=== PATIENT | female | born 1975 | race Caucasian/White ===

== ENCOUNTER → 2016-10-07 | Outpatient (CLI) | payer MEDICARE, MEDICAID ==
[2016-10-07 11:47] LABS: ABSOLUTE BASOPHILS # (AUTO) 0.1 10^3/uL (0.0-0.2); ABSOLUTE EOSINOPHILS # (AUTO) 0.2 10^3/uL (0.0-0.6); ABSOLUTE LYMPHOCYTES (AUTO) 1.6 10^3/uL (0.5-4.7); ABSOLUTE MONOCYTES (AUTO) 0.5 10^3/uL (0.1-1.4); ABSOLUTE NEUT (AUTO) 2.9 10^3/uL (1.7-8.2); BASOPHILS % (AUTO) 1.2 % (0-2); EOSINOPHILS % (AUTO) 4.2 % (0-6); HEMATOCRIT 37.9 % (36.0-47.0); HEMOGLOBIN 12.7 g/dL (12.0-15.5); HGB HCT DIFFERENCE 0.2; LYMPHOCYTES % (AUTO) 30.7 % (13-45); MEAN CORPUSCULAR HEMOGLOBIN 29.8 pg (27.0-33.4); MEAN CORPUSCULAR HGB CONC 33.6 g/dL (32.0-36.0); MEAN CORPUSCULAR VOLUME 89 fl (80-97); MONOCYTES % (AUTO) 8.8 % (3-13); RED BLOOD COUNT 4.26 10^6/uL (3.72-5.28); RED CELL DISTRIBUTION WIDTH 13.5 % (11.5-14.0); SEGMENTED NEUTROPHILS % (AUTO) 55.1 % (42-78); WHITE BLOOD COUNT 5.2 10^3/uL (4.0-10.5)
== END ==
LOC: CAR 10:35
PROVIDERS: ATTEND Family Medicine
DX: Z79.899 Other long term (current) drug therapy (principal); G40.209 Localization-related (focal) (partial) symptomatic epilepsy and epileptic syndromes with complex partial seizures, not intractable, without status epilepticus
CPT/HCPCS: 85025

== ENCOUNTER → 2018-10-27 | Outpatient (CLI) | payer MEDICARE, MEDICAID ==
[2018-10-27 09:46] LABS: ABSOLUTE EOSINOPHILS # (AUTO) 0.1 10^3/uL (0.0-0.6); ABSOLUTE LYMPHOCYTES (AUTO) 1.5 10^3/uL (0.5-4.7); ABSOLUTE MONOCYTES (AUTO) 0.4 10^3/uL (0.1-1.4); ABSOLUTE NEUT (AUTO) 3.3 10^3/uL (1.7-8.2); BASOPHILS % (AUTO) 0.7 % (0-2); EOSINOPHILS % (AUTO) 1.9 % (0-6); HEMATOCRIT 39.7 % (36.0-47.0); HEMOGLOBIN 13.1 g/dL (12.0-15.5); LYMPHOCYTES % (AUTO) 28.3 % (13-45); MEAN CORPUSCULAR VOLUME 88 fl (80-97); MONOCYTES % (AUTO) 7.2 % (3-13); PLATELET COUNT 232 10^3/uL (150-450); RED BLOOD COUNT 4.53 10^6/uL (3.72-5.28); RED CELL DISTRIBUTION WIDTH 14.5 % (11.5-14.0); SEGMENTED NEUTROPHILS % (AUTO) 61.9 % (42-78); TOTAL CELLS COUNTED % (AUTO) 100 %; WHITE BLOOD COUNT 5.4 10^3/uL (4.0-10.5)
[2018-10-27 10:31] LABS: ALANINE AMINOTRANSFERASE 29 U/L (9-52); ALBUMIN 4.6 g/dL (3.5-5.0); ALKALINE PHOSPHATASE 91 U/L (38-126); ANION GAP 15 (5-19); ASPARTATE AMINO TRANSFERASE 21 U/L (14-36); BILIRUBIN,DIRECT 0.4 mg/dL (0.0-0.4); BILIRUBIN,TOTAL 0.5 mg/dL (0.2-1.3); BLOOD UREA NITROGEN 11 mg/dL (7-20); CALCIUM 9.6 mg/dL (8.4-10.2); CARBON DIOXIDE 28 mmol/L (22-30); CHLORIDE 103 mmol/L (98-107); CHOLESTEROL 163.92 mg/dL (0-200); GLUCOSE 94 mg/dL (75-110); POTASSIUM 3.6 mmol/L (3.6-5.0); SODIUM 145.9 mmol/L (137-145); TOTAL PROTEIN 8.4 g/dL (6.3-8.2); TRIGLYCERIDES 67 mg/dL (<150)
[2018-10-27 10:42] LABS: DIRECT LDL 86 mg/dL (<100)
== END ==
LOC: CAR 08:38
PROVIDERS: ATTEND Family Medicine
DX: E55.9 Vitamin D deficiency, unspecified (principal); K59.00 Constipation, unspecified; Z00.00 Encounter for general adult medical examination without abnormal findings; Z79.899 Other long term (current) drug therapy; G40.909 Epilepsy, unspecified, not intractable, without status epilepticus
CPT/HCPCS: 80053; 80061; 82306; 84443; 85025

== ENCOUNTER 2018-12-21 15:36 | Emergency (ER) | payer MEDICARE, MEDICAID ==
--- NOTE | 2018-12-21 18:39 | ER Document Report ---
ED Fall - General Chief Complaint: Head Injury without LOC Stated Complaint: HEAD INJURY Time Seen by Provider: 12/21/18 18:25 Primary Care Provider: MORENITA HARPER MD [Primary Care Provider] - Follow up as needed Mode of Arrival: Wheelchair Information source: Patient Notes: 43-year-old resident of [place] fell today when she was getting up off the toilet hitting her head on the floor. Caregiver states that she tried to stand up and lost her balance and fell landing on the tile floor. Staff reports no unconsciousness there is a small abrasion to her right side of her scalp but no active bleeding. Staff states she also fell landing on her shoulder. She is moving the shoulder but as she is unable to tell me if she has any pain I am unable to assess the amount of pain. We will get a x-ray of the shoulder to ensure that it is not injured. TRAVEL OUTSIDE OF THE [place] IN LAST 30 DAYS: No - HPI Occurred: This afternoon Where: Other - [place] Context: Fell from standing Associated symptoms: None Location of injury/pain: Head, Shoulder - Right Quality of pain: No pain - Unable to determine no obvious pain Severity: None Past Medical History - General Information source: Legal Guardian - Caregiver at [facility] - Social History Smoking Status: Never Smoker Frequency of alcohol use: None Drug Abuse: None Lives with: Other - [place] Family History: Reviewed & Not Pertinent Patient has suicidal ideation: No Patient has homicidal ideation: No - Past Medical History Cardiac Medical History: Reports: None Pulmonary Medical History: Reports: None EENT Medical History: Reports: None Neurological Medical History: Reports: None Endocrine Medical History: Reports: None Renal/ Medical History: Reports: None Malignancy Medical History: Reports: None GI Medical History: Reports: None Musculoskeletal Medical History: Reports Hx Muscle Spasm, Reports Hx Muscle Weakness, Reports Hx Musculoskeletal Deformity, Reports Hx Musculoskeletal Trauma, Reports Other - Cerebral palsy Skin Medical History: Reports None Psychiatric Medical History: Reports: None Traumatic Medical History: Reports: None Infectious Medical History: Reports: None Review of Systems - Review of Systems Constitutional: No symptoms reported EENT: No symptoms reported Cardiovascular: No symptoms reported Respiratory: No symptoms reported Gastrointestinal: No symptoms reported Genitourinary: No symptoms reported Female Genitourinary: No symptoms reported Musculoskeletal: Muscle stiffness Skin: Other - Small abrasion to right scalp Hematologic/Lymphatic: No symptoms reported Neurological/Psychological: No symptoms reported -: Yes All other systems reviewed and negative Physical Exam - Vital signs Vitals: Temp Pulse Resp BP Pulse Ox 98.6 F 100 20 112/71 100 12/21/18 16:16 12/21/18 16:16 12/21/18 16:16 12/21/18 16:16 12/21/18 16:16 Interpretation: Normal - General General appearance: Appears well, Alert - HEENT Head: Abrasions, Open wounds, Tenderness, Other - Superficial less than half centimeter laceration to the right scalp Eyes: Normal - Respiratory Respiratory status: No respiratory distress Chest status: Nontender Breath sounds: Normal Chest palpation: Normal - Cardiovascular Rhythm: Regular Heart sounds: Normal auscultation Murmur: No - Abdominal Inspection: Normal Distension: No distension Bowel sounds: Normal Tenderness: Nontender Organomegaly: No organomegaly - Back Back: Normal, Nontender - Extremities General upper extremity: Normal inspection, Tender - Right shoulder, Normal color, Normal temperature. No: Normal ROM - Cerebral palsy General lower extremity: Normal inspection, Nontender, Normal color, Normal temperature. No: Normal ROM - Cerebral palsy, Normal weight bearing, Zoë's sign - Neurological Neuro grossly intact: Yes Cognition: Normal Orientation: AAOx4 Bowie Coma Scale Eye Opening: Spontaneous Bowie Coma Scale Verbal: Oriented Lashell Coma Scale Motor: Obeys Commands Bowie Coma Scale Total: 15 Speech: Normal Motor strength normal: LUE, RUE, LLE, RLE Sensory: Normal - Psychological Associated symptoms: Normal affect, Normal mood - Skin Skin Temperature: Warm Skin Moisture: Dry Skin Color: Normal Skin irregularity: Laceration - Extremely superficial less than half a centimeter abrasions around the small laceration Location of irregularity: Scalp Irregularity with: Tenderness Course - Re-evaluation Re-evalutation: 12/21/18 20:34 X-rays negative. Caregiver was instructed to continue current treatments and to follow-up with primary doctor in the next 24 to 48 hours. - Vital Signs Vital signs: Temp Pulse Resp BP Pulse Ox 97.6 F 97 14 99/85 L 100 12/21/18 19:47 12/21/18 19:47 12/21/18 19:47 12/21/18 19:47 12/21/18 16:16 - Diagnostic Test Radiology reviewed: Image reviewed, Reports reviewed Discharge - Discharge Clinical Impression: Fall Qualifiers: Encounter type: initial encounter Qualified Code(s): W19.XXXA - Unspecified fall, initial encounter Laceration of head Qualifiers: Encounter type: initial encounter Location of open wound of head: scalp Foreign body presence: without foreign body Qualified Code(s): S01.01XA - Laceration without foreign body of scalp, initial encounter Shoulder injury Qualifiers: Encounter type: initial encounter Laterality: right Qualified Code(s): S49.91XA - Unspecified injury of right shoulder and upper arm, initial encounter Condition: Good Disposition: HOME, SELF-CARE Additional Instructions: HEAD INJURY PRECAUTIONS: At this point, there is no evidence that your head injury is serious. Observation is necessary, however. Take only clear liquids for the first few hours, unless told otherwise by the doctor. If no pain medication was prescribed, you may take acetaminophen according to the directions on the bottle. Do not take any medication that may alter your level of alertness (unless you've discussed it with the doctor first). Limit activity for the first 24 hours. Bed rest is best. During the first 24 hours, check to see approximately every two to three hours that the patient is easily arousable, responds normally, and can perform common tasks such as walking without difficulty. Contact your doctor or go to the hospital if any of the following things occur: Persistent vomiting, difficulty in arousing the patient, worsening or continued headache, or failure to improve as expected. Head injuries can cause symptoms that persist for a few days or even a few weeks. NON-SUTURED LACERATION: Your laceration did not require suturing. Some lacerations cannot be sutured because of increased infection risk, while others simply don't need stitches because they are shallow or very short. Your injury should be protected while it heals. Usually complete healing takes 10 to 14 days. Keep the dressing clean and dry, and change it every day. If you notice increasing pain, redness, swelling, drainage, or tender lumps in the armpit or groin above the injury, infection may be present. You should call the doctor at once. SOAP CLEANSING: Gently wash the wound daily using a mild soap (like Ivory, Phisoderm, Neutrogena). Use warm water, rubbing gently until all debris, ooze, and crusting have been washed from the wound. Allow to dry briefly (about 10 minutes) after cleaning. Repeat this cleansing at least three times a day for the first two days and then once or twice a day. ANTIBIOTIC OINTMENT PROTECTION: Your wounds are such that dressing them is not practical or optional. After cleansing, you should apply a thin coating of antibiotic ointment (Bacitracin, not Neosporin) to the wounds at least three times daily. This lessens infection risk, and may decrease the amount of scarring. Use a q-tip or dull butter knife, not your finger, to apply this ointment. Any debris or ooze which builds up in the ointment should be gently rubbed off with a sterile gauze pad. Harder crusting may need to be gently scrubbed off with a clean wash cloth with soap and warm water, perhaps applying a warm, wet wash cloth to the wound for ten minutes first. Development of redness, severe itching, or blistering may mean allergy to the ointment. See the doctor. CONTUSION: Your injury has resulted in a contusion -- a crushing of the deep tissues. No injury to important structures was detected during the physician's exam. Contusions vary in the amount of pain they cause, and in the length of time required for healing. Typically, the area will become bruised, and will remain painful to touch for two or three weeks. However, most patients are back to working and playing within a few days. After the initial period of rest and cold-packs, your symptoms (together with the doctor's recommendations) will determine how rapidly you can get back to full activity. Usually this means "do what feels okay, but don't do things that hurt." If re-examination was recommended, it's important to follow up as instructed. Call the doctor or return any time if pain increases, if swelling becomes severe, if you develop numbness or weakness in an injured extremity, or if any other alarming symptoms occur. ABRASIONS: An abrasion is a scraping injury of the skin. Some scarring may result. The seriousness of an abrasion is not always obvious at first. Hidden tissue damage may be present and infection may occur despite proper care. Complete healing may take from ten days to as long as a month. The healing time depends on the depth of the abrasion, and on the amount of crushing of underlying tissues from the injury. Keep the wound and dressing clean. Do not shower or bathe the area until okayed by the doctor. If the dressing gets wet, remove it and blot the wound dry, then reapply a clean dressing. Dressings should be changed every day. Sunscreen should be used for six months after the skin is healed. If any signs of infection occur (swelling, redness, increasing tenderness, red streaks, profuse purulent drainage from the abrasion, tender lumps in the armpit or groin above the abrasion, or fever), see the doctor immediately. USE OF TYLENOL (ACETAMINOPHEN): Acetaminophen may be taken for pain relief or fever control. It's much safer than aspirin, offering a wider range of "safe" dosages. It is safe during . Some brand names are Tylenol, Panadol, Datril, Anacin 3, Tempra, and Liquiprin. Acetaminophen can be repeated every four hours. The following are maximum recommended dosages: WEIGHT Dose Drops Elixir Chewable(80mg) (LBS.) drprs=droppers tsp=teaspoon 6 40 mg 0.4 ml (1/2) 6-11 80 mg 0.8 ml (full) tsp 1 tab 12-16 120 mg 1 1/2 drprs 3/4 tsp 1 1/2 tabs 17-23 160 mg 2 drprs 1 tsp 2 tabs 24-30 240 mg 3 drprs 1 1/2 tsp 3 tabs 30-35 320 mg 2 tsp 4 tabs 36-41 360 mg 2 1/4 tsp 4 1/2 tabs 42-47 400 mg 2 1/2 tsp 5 tabs 48-53 480 mg 3 tsp 6 tabs 54-59 520 mg 3 1/4 tsp 6 1/2 tabs 60-64 560 mg 3 1/2 tsp 7 tabs 65-70 600 mg 3 3/4 tsp 7 1/2 tabs 71-76 640 mg 4 tsp 8 tabs 77-82 720 mg 4 1/2 tsp 9 tabs 83-88 800 mg 5 tsp 10 tabs >89 pounds or adults 650 mg to 900 mg Acetaminophen can be repeated every four hours. Maximum dose not to exceed 4000 mg a day. These maximum recommended dosages are slightly higher than the dosages written on the product container, but these dosages are very safe and below the toxic dosage for acetaminophen. ICE PACKS: Apply ice packs frequently against the painful area. Many different schedules are recommended, such as "20 minutes on, 20 minutes off" or "one hour ice, two hours rest." If you need to work, you may need to go longer between ice treatments. You should plan to have the area ice packed AT LEAST one fourth of the time. The ice should be applied over the wrap, tape, or splint, or over a layer of cloth -- not directly against the skin. Some ice bags have a built-in cloth and can be put directly on the skin. FOLLOW-UP CARE: If you have been referred to a physician for follow-up care, call the physicians office for an appointment as you were instructed or within the next two days. If you experience worsening or a significant change in your symptoms, notify the physician immediately or return to the Emergency Department at any time for re-evaluation. Referrals: MORENITA HARPER MD [Primary Care Provider] - Follow up as needed
--- NOTE | 2018-12-21 19:03 | RADIOLOGY REPORT (SQ) ---
EXAM DESCRIPTION: SHOULDER RIGHT 2 OR MORE VIEWS COMPLETED DATE/TIME: 12/21/2018 6:50 pm REASON FOR STUDY: fall onto shoulder, cerebral palsy COMPARISON: None. NUMBER OF VIEWS: Four views. TECHNIQUE: Internal rotation, external rotation, and Y view images acquired of the right shoulder. LIMITATIONS: None. FINDINGS: MINERALIZATION: Normal. BONES: No acute fracture. No worrisome bone lesions. JOINTS: No dislocation. VISUALIZED LUNGS AND RIBS: No pneumothorax. No rib fracture. SOFT TISSUES: No radiopaque foreign body. OTHER: Partially imaged Flaherty rods in the setting of marked scoliotic curvature of the visualize d spine. IMPRESSION: No evidence of fracture or dislocation. TECHNICAL DOCUMENTATION: JOB ID: [id number] [employer]- All Rights Reserved Reading location - IP/workstation name: [email or web address]
[2018-12-21 19:49] VITALS: BP 99/85
== END 2018-12-21 19:47 | disposition home or self-care (01) ==
LOC: ER 15:36
DX: S01.01XA Laceration without foreign body of scalp, initial encounter (principal); S49.91XA Unspecified injury of right shoulder and upper arm, initial encounter; W18.30XA Fall on same level, unspecified, initial encounter; Y92.002 Bathroom of unspecified non-institutional (private) residence as the place of occurrence of the external cause
CPT/HCPCS: 99283

== ENCOUNTER → 2020-05-29 | Outpatient (CLI) | payer MEDICARE, MEDICAID ==
[2020-05-29 14:14] LABS: ABSOLUTE EOSINOPHILS # (AUTO) 0.1 10^3/uL (0.0-0.6); ABSOLUTE LYMPHOCYTES (AUTO) 1.9 10^3/uL (0.5-4.7); ABSOLUTE MONOCYTES (AUTO) 0.5 10^3/uL (0.1-1.4); BASOPHILS % (AUTO) 0.5 % (0-2); EOSINOPHILS % (AUTO) 1.6 % (0-6); HEMOGLOBIN 12.6 g/dL (12.0-15.5); LYMPHOCYTES % (AUTO) 22.4 % (13-45); MEAN CORPUSCULAR HGB CONC 33.1 g/dL (32.0-36.0); MEAN CORPUSCULAR VOLUME 88 fl (80-97); MONOCYTES % (AUTO) 5.5 % (3-13); PLATELET COUNT 266 10^3/uL (150-450); RED BLOOD COUNT 4.33 10^6/uL (3.72-5.28); RED CELL DISTRIBUTION WIDTH 13.7 % (11.5-14.0); TOTAL CELLS COUNTED % (AUTO) 100 %; WHITE BLOOD COUNT 8.6 10^3/uL (4.0-10.5)
[2020-05-29 14:37] LABS: ALBUMIN 4.4 g/dL (3.5-5.0); ALKALINE PHOSPHATASE 91 U/L (38-126); ANION GAP 9 (5-19); ASPARTATE AMINO TRANSFERASE 19 U/L (14-36); BILIRUBIN,DIRECT 0.1 mg/dL (0.0-0.4); BILIRUBIN,TOTAL 0.3 mg/dL (0.2-1.3); BLOOD UREA NITROGEN 10 mg/dL (7-20); CALCIUM 9.5 mg/dL (8.4-10.2); CARBON DIOXIDE 28 mmol/L (22-30); CHLORIDE 103 mmol/L (98-107); GLUCOSE 87 mg/dL (75-110); POTASSIUM 4.2 mmol/L (3.6-5.0); TOTAL PROTEIN 8.2 g/dL (6.3-8.2)
== END ==
LOC: OD 13:31
PROVIDERS: ATTEND Family Medicine
DX: R11.10 Vomiting, unspecified (principal)
CPT/HCPCS: 36415; 80053; 85025